=== PATIENT | female | born 1995 | race Caucasian/White ===

== ENCOUNTER 2018-07-02 14:31 | Emergency (ER) | payer SELFPAY ==
[~2018-07-02] VITALS: Ht 160 cm; Wt 93.9 kg
[2018-07-02] MEDS ORDERED: PREDNISONE10 MG PO (14:53)
[2018-07-02] MEDS ORDERED: KENALOG 0.1%80 GM T (14:53)
[2018-07-02] MEDS ORDERED: VISTARIL50 MG PO (14:53)
== END 2018-07-02 15:20 | disposition home or self-care (01) ==
LOC: ED 14:31
DX: L25.5 Unspecified contact dermatitis due to plants, except food (principal)

== ENCOUNTER → 2018-09-09 | Outpatient (CLI) | payer OTHER ==
[~2018-09-09] MED LIST: KENALOG 0.1%80 GM T; PREDNISONE10 MG PO; VISTARIL50 MG PO
== END | disposition home or self-care (01) ==
LOC: RAD 16:23
DX: M54.5 Low back pain (principal)

== ENCOUNTER 2019-01-21 16:15 | Emergency (ER) | payer OTHER ==
[~2019-01-21] VITALS: Ht 160 cm; Wt 105.7 kg
[2019-01-21] MEDS ORDERED: AMOXICILLIN500 M3 PO (18:09)
== END 2019-01-21 18:12 | disposition home or self-care (01) ==
LOC: ED 16:15
DX: J02.9 Acute pharyngitis, unspecified (principal); R06.02 Shortness of breath; R05 Cough; R09.81 Nasal congestion

== ENCOUNTER 2019-08-07 15:24 | Emergency (ER) | payer OTHER ==
[~2019-08-07] VITALS: Ht 154.9 cm; Wt 140.6 kg
[~2019-08-07 15:24] MED LIST changes: +AMOXICILLIN500 M3 PO
[2019-08-07] MEDS ORDERED: AMOXICILLIN500 M2 PO (15:48)
[2019-08-07] MEDS ORDERED: ZYRTEC10 MG PO (15:48)
[2019-08-07] MEDS ORDERED: FLONASE ALLERG9.9 ML NAS (15:48)
== END 2019-08-07 15:57 | disposition home or self-care (01) ==
LOC: ED 15:24
DX: J01.90 Acute sinusitis, unspecified (principal)

== ENCOUNTER 2020-07-06 19:07 | Emergency (ER) | payer OTHER ==
[~2020-07-06] VITALS: Ht 157.4 cm; Wt 127.0 kg
[~2020-07-06 19:07] MED LIST changes: +AMOXICILLIN500 M2 PO; +FLONASE ALLERG9.9 ML NAS; +ZYRTEC10 MG PO
[2020-07-06] MEDS ORDERED: ROBITUSSIN DM 101 OZ PO (20:54)
== END 2020-07-06 21:31 | disposition home or self-care (01) ==
LOC: ED 19:07
DX: B34.9 Viral infection, unspecified (principal)

== ENCOUNTER → 2020-08-01 | Outpatient (CLI) | payer OTHER ==
[~2020-08-01] MED LIST changes: +ROBITUSSIN DM 101 OZ PO
== END | disposition home or self-care (01) ==
LOC: COVID19 00:24
PROVIDERS: ATTEND Internal Medicine
DX: Z20.828 Contact with and (suspected) exposure to other viral communicable diseases (principal)

== ENCOUNTER 2020-08-19 17:10 | Emergency (ER) | payer OTHER ==
[~2020-08-19] VITALS: Ht 157.4 cm; Wt 129.3 kg
[2020-08-19] MEDS ORDERED: TYLENOL325 M1 PO (17:38)
[2020-08-19] MEDS ORDERED: NAPROXEN250 MG PO (17:38)
== END 2020-08-19 18:30 | disposition home or self-care (01) ==
LOC: ED 17:10
DX: S93.402A Sprain of unspecified ligament of left ankle, initial encounter (principal); S93.602A Unspecified sprain of left foot, initial encounter; Z79.899 Other long term (current) drug therapy; X58.XXXA Exposure to other specified factors, initial encounter; Y93.89 Activity, other specified; Y92.89 Other specified places as the place of occurrence of the external cause; Y99.8 Other external cause status

== ENCOUNTER → 2020-11-10 | Outpatient (CLI) | payer OTHER ==
[~2020-11-10] MED LIST changes: +NAPROXEN250 MG PO; +TYLENOL325 M1 PO
== END | disposition home or self-care (01) ==
LOC: COVID19 10:46
PROVIDERS: ATTEND Internal Medicine
DX: U07.1 COVID-19 (principal)

== ENCOUNTER 2020-11-16 23:50 | Emergency (ER) | payer OTHER ==
[~2020-11-16] VITALS: Ht 157.4 cm; Wt 120.2 kg
[2020-11-17 00:17] LABS: BASO % 0.3 % (0.0-1.0); EOS # 0.1 10*3/uL (0.0-0.4); HEMATOCRIT 44.4 % (37.0-47.0); LYMPH # 2.3 10*3/uL (1.3-4.4); LYMPH % 25.4 % (27.0-41.0); MEAN CELL VOLUME 87.1 fl (81.0-99.0); MEAN CORPUSCULAR HGB 27.1 pg (27.0-31.0); MEAN CORPUSCULAR HGB CONC 31.1 g/dl (33.0-37.0); MEAN PLATELET VOLUME 9.2 fl (9.6-12.3); MONO # 0.5 10*3/uL (0.1-1.0); MONO % 5.5 % (3.0-9.0); NEUT % 67.7 % (47.0-73.0); PLATELET COUNT AUTOMATED 444 10*3/uL (130-400); RED CELL DISTRI WIDTH 12.7 % (0-14.5); WHITE BLOOD COUNT 8.9 10*3/uL (4.8-10.8)
[2020-11-17 00:30] LABS: BILIRUBIN Negative (Negative); BLOOD Negative (Negative); CLARITY Clear (Clear); COLOR Yellow (Yellow); GLUCOSE Negative (Negative); KETONE Negative (Negative); LEUKO ESTERASE Negative (Negative); NITRITE Negative (Negative); PH 5.5 (4.5-8.0); SPECIFIC GRAVITY >= 1.030 (1.001-1.030)
[2020-11-17 00:34] LABS: ALBUMIN 3.7 gm/dl (3.1-4.5); ALKALINE PHOSPHATASE 92 U/L (45-117); BUN 11 mg/dl (7-24); CHLORIDE 106 mmol/L (98-107); CREATININE 0.74 mg/dL (0.55-1.02); LIPASE 49 U/L (73-393); POTASSIUM 3.4 mmol/L (3.5-5.1); SGOT/AST 20 IU/L (3-35); SGPT/ALT 31 U/L (12-78); SODIUM 139 mmol/L (136-145); TOTAL PROTEIN 8.2 gm/dL (6.4-8.2)
[2020-11-17 00:36] LABS: BACTERIA 3+; RBC 0-2 rbc/hpf (0-2)
== END 2020-11-17 00:58 | disposition home or self-care (01) ==
LOC: ED 23:50
PROVIDERS: Nurse Practitioner Family
DX: K52.89 Other specified noninfective gastroenteritis and colitis (principal); Z79.899 Other long term (current) drug therapy

== ENCOUNTER 2021-12-23 09:09 | Emergency (ER) | payer OTHER ==
[2021-12-23] MEDS ORDERED: CLARITIN10 MG PO (10:11)
[2021-12-23] MEDS ORDERED: ALA-CORT28.4 GM T (10:11)
== END 2021-12-23 10:30 | disposition home or self-care (01) ==
LOC: ED 09:09
DX: R21 Rash and other nonspecific skin eruption (principal); I10 Essential (primary) hypertension; Z79.2 Long term (current) use of antibiotics; Z79.899 Other long term (current) drug therapy

== ENCOUNTER 2022-03-08 13:54 | Emergency (ER) | payer OTHER ==
[~2022-03-08 13:54] MED LIST changes: +ALA-CORT28.4 GM T; +CLARITIN10 MG PO
[2022-03-08] MEDS ORDERED: AUGMENTIN 875-875 MG PO (14:17)
== END 2022-03-08 14:26 | disposition home or self-care (01) ==
LOC: ED 13:54
DX: K08.89 Other specified disorders of teeth and supporting structures (principal)

== ENCOUNTER → 2022-06-11 | Outpatient (CLI) | payer OTHER ==
[~2022-06-11] MED LIST changes: +AUGMENTIN 875-875 MG PO
[2022-06-11 09:29] LABS: BASO # 0.1 10*3/uL (0.0-0.1); BASO % 0.8 % (0.0-1.0); EOS # 0.1 10*3/uL (0.0-0.4); EOS % 1.7 % (1.0-4.0); HEMATOCRIT 39.4 % (37.0-47.0); LYMPH % 31.6 % (27.0-41.0); MEAN CELL VOLUME 86.8 fl (81.0-99.0); MEAN CORPUSCULAR HGB 28.4 pg (27.0-31.0); MEAN CORPUSCULAR HGB CONC 32.7 g/dl (33.0-37.0); MONO # 0.5 10*3/uL (0.1-1.0); MONO % 7.6 % (3.0-9.0); NEUT # 3.8 10*3/uL (2.3-7.9); NEUT % 58.1 % (47.0-73.0); PLATELET COUNT AUTOMATED 425 10*3/uL (130-400); RED BLOOD COUNT 4.54 10*6/uL (4.10-5.10); RED CELL DISTRI WIDTH 12.7 % (0-14.5); RETICULOCYTE % 1.52 % (0.50-2.50); WHITE BLOOD COUNT 6.5 10*3/uL (4.8-10.8)
[2022-06-11 09:44] LABS: BILIRUBIN Negative (Negative); BLOOD 1+ (Negative); CLARITY Clear (Clear); COLOR Yellow (Yellow); GLUCOSE Negative (Negative); KETONE Trace (Negative); LEUKO ESTERASE Negative (Negative); NITRITE Negative (Negative)
[2022-06-11 09:50] LABS: CHLORIDE 107 mmol/L (98-107); POTASSIUM 3.3 mmol/L (3.5-5.1); SODIUM 139 mmol/L (136-145)
[2022-06-11 10:04] LABS: ALKALINE PHOSPHATASE 82 U/L (45-117); BUN 8 mg/dl (7-24); CHOLESTEROL 225 mg/dL (<200); GAMMA GLUTAMYL TRANSPEPTIDASE 19 U/L (5-55); IRON 51 ug/dL (50-170); LDL CHOLESTEROL 159 mg/dL (9-159); SGOT/AST 16 IU/L (3-35); SGPT/ALT 21 U/L (12-78); TOTAL IRON BINDING CAPACITY 367 ug/dl (250-450); TOTAL PROTEIN 7.4 gm/dL (6.4-8.2); TRIGLYCERIDES 168 mg/dl (<150); URIC ACID 3.8 mg/dL (2.6-6.0)
[2022-06-11 10:18] LABS: VITAMIN D, 25-HYDROXY 28.6 ng/mL (30-100)
[2022-06-11 10:19] LABS: FERRITIN 21.9 ng/mL (10.0-291.0)
[2022-06-11 10:55] LABS: BACTERIA 1+; MUCOUS 1+
[2022-06-12 04:06] LABS: RHEUMATOID FACTOR <10.0 IU/mL (<14.0)
[2022-06-12 14:07] LABS: ANTI-DSDNA ANTIBODIES <1 IU/mL (0-9)
== END | disposition home or self-care (01) ==
LOC: LAB 09:03
PROVIDERS: ATTEND Family Medicine
DX: M47.816 Spondylosis without myelopathy or radiculopathy, lumbar region (principal); R79.89 Other specified abnormal findings of blood chemistry; R53.83 Other fatigue; R74.8 Abnormal levels of other serum enzymes; E78.5 Hyperlipidemia, unspecified; E55.9 Vitamin D deficiency, unspecified

== ENCOUNTER 2023-04-27 11:22 | Emergency (ER) | payer OTHER ==
[~2023-04-27] VITALS: Ht 160 cm; Wt 127.0 kg
[2023-04-27] MEDS ORDERED: FLUOXETINE HYDR20 M1 PO (11:34)
[2023-04-27] MEDS ORDERED: BROMFED DM COU118 M2 PO (13:37)
[2023-04-27] MEDS ORDERED: MEDROL DOSEPAK4 MG PO (13:37)
[2023-04-27] MEDS ORDERED: PROVENTIL HFA6.7 GM INH (13:37)
== END 2023-04-27 14:02 | disposition home or self-care (01) ==
LOC: ED 11:22
DX: J06.9 Acute upper respiratory infection, unspecified (principal)

== ENCOUNTER 2023-06-13 20:07 | Emergency (ER) | payer OTHER ==
[~2023-06-13] VITALS: Ht 154.9 cm; Wt 123.8 kg
[~2023-06-13 20:07] MED LIST changes: +BROMFED DM COU118 M2 PO; +FLUOXETINE HYDR20 M1 PO; +MEDROL DOSEPAK4 MG PO; +PROVENTIL HFA6.7 GM INH
[2023-06-13 21:43] LABS: BASO # 0.1 10*3/uL (0.0-0.1); BASO % 0.6 % (0.0-1.0); EOS # 0.2 10*3/uL (0.0-0.4); HEMATOCRIT 40.4 % (37.0-47.0); LYMPH # 2.3 10*3/uL (1.3-4.4); LYMPH % 29.8 % (27.0-41.0); MEAN CELL VOLUME 87.8 fl (81.0-99.0); MEAN CORPUSCULAR HGB 28.5 pg (27.0-31.0); MEAN CORPUSCULAR HGB CONC 32.4 g/dl (33.0-37.0); MEAN PLATELET VOLUME 9.3 fl (9.6-12.3); MONO # 0.6 10*3/uL (0.1-1.0); MONO % 8.2 % (3.0-9.0); NEUT # 4.6 10*3/uL (2.3-7.9); NEUT % 59.1 % (47.0-73.0); PLATELET COUNT AUTOMATED 385 10*3/uL (130-400); RED CELL DISTRI WIDTH 13.2 % (0-14.5); WHITE BLOOD COUNT 7.8 10*3/uL (4.8-10.8)
[2023-06-13 22:05] LABS: ALKALINE PHOSPHATASE 82 U/L (46-116); BUN 11 mg/dl (9-23); CHLORIDE 103 mmol/L (98-107); LIPASE 31 U/L (12-53); POTASSIUM 3.8 mmol/L (3.4-5.1); SGPT/ALT 18 U/L (10-49); TOTAL PROTEIN 7.3 gm/dL (6.0-8.0)
== END 2023-06-14 00:51 | disposition home or self-care (01) ==
LOC: ED 20:07
PROVIDERS: Physician Assistant Medical
DX: S60.032A Contusion of left middle finger without damage to nail, initial encounter (principal); S60.222A Contusion of left hand, initial encounter; M79.672 Pain in left foot; R19.7 Diarrhea, unspecified; R07.89 Other chest pain; R06.02 Shortness of breath; R10.9 Unspecified abdominal pain; Z79.899 Other long term (current) drug therapy; X58.XXXA Exposure to other specified factors, initial encounter; Y93.89 Activity, other specified; Y92.69 Other specified industrial and construction area as the place of occurrence of the external cause; Y99.8 Other external cause status